=== PATIENT | female | born 2005 | race Caucasian/White ===

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

== ENCOUNTER 2024-01-25 23:07 | Emergency (ER) | payer OTHER ==
[2024-01-25] MEDS ORDERED: Droperidol 5 MG/2 ML VIAL ONE (23:56)
[2024-01-26] MEDS ORDERED: Acetaminophen 500 MG TAB ONE (00:01)
[2024-01-26] MEDS ORDERED: Ketorolac Tromethamine 30 MG (1 mL) VIAL ONE (00:01)
[2024-01-26] MEDS ORDERED: diphenhydrAMINE 50 MG/ML VIAL ONE (00:01)
== END 2024-01-26 01:22 | disposition home or self-care (01) ==
LOC: CSHERS 23:07
DX: R51.9 Headache, unspecified (principal)
CPT/HCPCS: 93005; 96374; 96375; J1200; J1790; J1885